=== PATIENT | female | born 2000 | race Caucasian/White ===

== ENCOUNTER 2021-05-17 18:07 | Inpatient (IN) ==
[2021-05-17] MEDS ORDERED: Ondansetron 4 MG/2 ML VIAL IVP ONE (20:00)
[2021-05-17] MEDS ORDERED: Morphine Sulfate 2 MG/ML SYRINGE IVP ONE (20:00)
[2021-05-17] MEDS ORDERED: 0.9 % Sodium Chloride 1,000 ML IV ONE (20:00)
[2021-05-17 20:02] LABS: Basophils % 0.4 %; Eosinophils # 0.2 K/mcL (0.0-0.6); Eosinophils % 2.1 %; Hematocrit 41.6 % (35.3-44.9); Immature Granulocytes % 0.3 % (0-4); Lymphocytes # 2.1 K/mcL (0.6-4.6); Mean Corpuscular HGB Conc 33.4 g/dL (31.6-35.5); Mean Corpuscular Hemoglobin 29.3 pg (28.0-33.3); Mean Corpuscular Volume 87.8 fL (83.0-100.0); Mean Platelet Volume 10.2 fL (9.4-12.4); Monocytes # 0.9 K/mcL (0.0-1.3); Monocytes % 8.9 %; Platelet Count 259 K/mcL (140-400); Red Blood Count 4.74 M/mcL (3.82-4.97); Red Cell Distribution Width 12.7 % (11.5-14.5); Segmented Neutrophils % 66.3 %
[2021-05-17 20:03] LABS: Hemoglobin 13.9 g/dL (11.5-15.4); Neutrophils # 6.4 K/mcL (1.6-8.9); White Blood Count 9.7 K/mcL (4.3-11.1)
[2021-05-17 20:07] LABS: Bacteria,Urine Few per hpf (None-Few); Bilirubin,Urine Negative (Negative); Blood,Urine Negative (Negative); Clarity,Urine Clear (Clear); Color,Urine Yellow (Yellow); Glucose,Urine (UA) Normal (Normal); Ketones,Urine Negative (Negative); Leukocyte Esterase,Urine Moderate (Negative); Mucus,Urine Many per lpf (None-Few); Nitrite,Urine Negative (Negative); Protein,Urine 50 mg/dL (Neg-Trace); Specific Gravity,Urine 1.029 (1.010-1.025); Squamous Epithelial Cell,Urine Few per hpf (None-Few); WBC,Urine 30-50 per hpf (0-3)
[2021-05-17 20:46] LABS: Alanine Aminotransferase 22 Units/L (7-52); Albumin 4.4 g/dL (3.5-5.7); Albumin/Globulin Ratio 1.4 (1.1-2.2); Alkaline Phosphatase 71 Units/L (34-104); Amylase 31 Units/L (29-103); Aspartate Amino Transferase 12 Units/L (13-39); BUN/Creatinine Ratio 15 (6-26); Bilirubin,Direct 0.1 mg/dL (0.0-0.2); Bilirubin,Indirect 0.3 mg/dL (0.0-1.0); Bilirubin,Total 0.4 mg/dL (0.3-1.0); Blood Urea Nitrogen 11 mg/dL (6-20); Calcium 9.3 mg/dL (8.6-10.3); Carbon Dioxide 24 mEq/L (23-29); Chloride 107 mEq/L (98-107); Globulin 3.2 g/dL (2.4-3.5); Glucose 79 mg/dL (70-105); Lipase 14 Units/L (11-82); Osmolality,Calculated 288 (280-300); Potassium 3.6 mEq/L (3.5-5.1); Sodium 140 mEq/L (136-145); Total Protein 7.6 g/dL (6.4-8.9); eGFR For African Americans > 60; eGFR For Non-African Americans > 60
[2021-05-17 21:00] LABS: Candida DNA Not Detected (Not Detect); Gardnerella DNA Not Detected (Not Detect); Trichomonas DNA Not Detected (Not Detect)
[2021-05-17] MEDS ORDERED: cefOXitin 2,000 MG in 0.9 % Sodium Chloride Mini Bag 100 ML IVPB ONE (21:33)
[2021-05-17] MEDS ORDERED: Doxycycline 100 MG in 0.9 % Sodium Chloride Mini Bag 100 ML IVPB ONE (21:33)
[2021-05-17] MEDS ORDERED: Ketorolac 30 MG/ML VIAL IVP ONE (22:13)
[2021-05-18] MEDS ORDERED: *HR* HYDROmorphone 2 MG/ML SYRINGE IVP PRN ×2 (01:29→20:16)
[2021-05-18] MEDS ORDERED: Ondansetron 4 MG/2 ML VIAL IVP PRN ×2 (01:31→20:18)
[2021-05-18] MEDS: *HR* OxyCODONE/APAP 5/325 TABLET PO PRN ×4 (02:19→21:20)
[2021-05-18] MEDS: Ringers Solution, Lactated 1,000 ML IVC SCH ×3 (02:59→21:20)
[2021-05-18 03:58] LABS: Influenza A PCR Negative (Negative); Influenza B PCR Negative (Negative); Resp. Syncytial Virus PCR Negative (Negative)
[2021-05-18 04:02] LABS: SARS-CoV-2 by PCR (In House) Positive (Negative)
[2021-05-18] MEDS ORDERED: cefTRIAXone 2,000 MG in 0.9 % Sodium Chloride Mini Bag 100 ML IVPB SCH (09:00)
[2021-05-18 11:03] LABS: Hepatitis B Surface Antigen Nonreactive (Nonreactive)
[2021-05-18 11:31] LABS: Hepatitis C Virus Antibody Nonreactive (Nonreactive)
[2021-05-18 11:32] LABS: HIV-1&2 Antibody & p24 Ag Nonreactive (Nonreactive)
[2021-05-18] MEDS ORDERED: Doxycycline 100 MG in 0.9 % Sodium Chloride Mini Bag 100 ML IVPB SCH ×2 (12:00→21:00)
[2021-05-18] MEDS ORDERED: Lanolin 7 G OINT...G. TP PRN (18:42)
[2021-05-18] MEDS ORDERED: Prenatal Vit/FA 1 EACH TABLET PO SCH (18:42)
[2021-05-18] MEDS ORDERED: Benzocaine/Menthol 56 GM AEROSOL SPRAY TP PRN (18:42)
[2021-05-18] MEDS ORDERED: Rho Immune Globulin 1,500 UNIT SYRINGE IM PRN (18:42)
[2021-05-18] MEDS ORDERED: Ondansetron ODT 4 MG TAB.RAPDIS SL PRN (18:42)
[2021-05-18] MEDS ORDERED: Oxytocin 20 units/ LR 1000 mL 20 UNIT/1,000 ML BAG IVC SCH (18:42)
[2021-05-18] MEDS ORDERED: Acetaminophen 325 MG TABLET PO SCH (18:42)
[2021-05-18] MEDS ORDERED: Ibuprofen 600 MG TABLET PO SCH (21:00)
[2021-05-19] MEDS ORDERED: Doxycycline 100 MG in 0.9 % Sodium Chloride Mini Bag 100 ML IVPB SCH
[2021-05-19] MEDS: *HR* OxyCODONE/APAP 5/325 TABLET PO PRN ×3 (00:58→14:15)
[2021-05-19 01:56] VITALS: O2SAT 100
[2021-05-19] MEDS: Ringers Solution, Lactated 1,000 ML IVC SCH (05:42)
[2021-05-19] MEDS ORDERED: cefTRIAXone 2,000 MG in 0.9 % Sodium Chloride Mini Bag 100 ML IVPB SCH (09:00)
[2021-05-19 11:37] VITALS: BP 124/82; PULSE 71; TEMP 98.2
== END 2021-05-19 14:35 | disposition home or self-care (01) | DRG 531 ==
LOC: EMEROOARM 18:07 → 1NENUOBS 18:07
PROVIDERS: ADMIT Obstetrics & Gynecology; ATTEND Obstetrics & Gynecology